=== PATIENT | male | born 1965 | race Caucasian/White ===

== ENCOUNTER 2021-11-29 08:03 | Outpatient (CLI) | payer BC | END 2021-11-29 08:04 | disposition home or self-care (01) | LOC: BICULT 08:03 | PROVIDERS: ATTEND Internal Medicine | DX: B18.2 Chronic viral hepatitis C (principal); R16.0 Hepatomegaly, not elsewhere classified; R93.2 Abnormal findings on diagnostic imaging of liver and biliary tract | CPT/HCPCS: 76700 ==

== ENCOUNTER 2023-01-23 12:41 | Outpatient (CLI) | payer BC ==
[~2023-01-23 12:41] MED LIST: ISOVUE-370 76% MDV (1 ML CHARGE) ONE
== END 2023-01-23 12:42 | disposition home or self-care (01) ==
LOC: BICCT 12:41
PROVIDERS: ATTEND Physician Assistant Medical
DX: K74.60 Unspecified cirrhosis of liver (principal); B18.2 Chronic viral hepatitis C; R10.11 Right upper quadrant pain; R16.0 Hepatomegaly, not elsewhere classified; K76.9 Liver disease, unspecified; R59.0 Localized enlarged lymph nodes
CPT/HCPCS: 74170